=== PATIENT | male | born 1965 | race Caucasian/White ===

== ENCOUNTER 2016-08-19 22:51 | Emergency (ER) | payer OTHER ==
[~2016-08-19] VITALS: Ht 185.4 cm; Wt 120.0 kg
[~2016-08-19 22:51] MED LIST: BACT800T5 PO; CEPH500C3 PO; CLON0.2T PO; GLUCTAB PO; GLYB1TAB51 PO; HYDR-3535 PO; LISI-360 PO; METO50TA OR; ST J81CH PO
[2016-08-19 23:10] VITALS: BP 154/97; PULSE 70; RESP 18; TEMP 98.5; O2SAT 96
[2016-08-19] MEDS ORDERED: ASPI81CH CHEW (23:28)
[2016-08-19] MEDS ORDERED: KETOROLAC TROMETHAMINE 30 MG/ML (IVP) VIAL IV PUSH ONE (23:30)
[2016-08-19] MEDS ORDERED: SODIUM CHLORIDE 0.9% FLUSH 10 ML FLUSH IVF PRN (23:30)
--- NOTE | 2016-08-19 23:44 | RADHPO ---
EXAM DATE/TIME: 08/19/2016 23:30 [facility] COMPARISON: CHEST PA & LAT, July 17, 2013, 10:19. INDICATIONS : Left chest and arm pain. MEDICAL HISTORY : None. SURGICAL HISTORY : None. ENCOUNTER: Initial ACUITY: 3 days PAIN SCORE: 8/10 LOCATION: Left chest FINDINGS: A single view of the chest demonstrates the lungs to be symmetrically aerated without evidence of mas s, infiltrate or effusion. The cardiomediastinal contours are unremarkable. Osseous structures are intact. CONCLUSION: No acute disease. Danyel Blue MD on August 19, 2016 at 23:42 Board Certified Radiologist. This report was verified electronically.
[2016-08-20 00:05] LABS: CHLORIDE 105 MEQ/L (98-107); POTASSIUM 3.8 MEQ/L (3.5-5.1); SODIUM (NA) 140 MEQ/L (136-145)
[2016-08-20 00:08] LABS: ANION GAP 7 MEQ/L (5-15); BICARBONATE 28.3 MEQ/L (21.0-32.0)
[2016-08-20 00:09] LABS: APTT (PATIENT) 28.5 SEC (24.3-30.1); BLOOD UREA NITROGEN 17 MG/DL (7-18); INTERNATIONAL NORMALIZED RATIO 1.1 RATIO; PROTHROMBIN TIME - PATIENT 11.9 SEC (9.8-11.6)
[2016-08-20 00:11] LABS: ALT (GPT) 32 U/L (12-78)
--- NOTE | 2016-08-20 00:11 | PD ---
HPI Chief Complaint: Musculoskeletal Complaint Time Seen by Provider: 23:27 Travel History International Travel<30 days: No Contact w/Intl Traveler<30days: No Traveled to known affect area: No History of Present Illness HPI Patient 50-year-old male presents emergency department with left lower extremity pain. Patient states the pain started a few days ago has been gradually worsening. He states that the pain is beginning to radiate into his upper back and now onto his left upper extremity. He is coming by his and they stated that they did some online research and found that the differential diagnosis included heart disease as well as DVT left lower extremity. They're concerned that he may have developed a severe condition. Patient denies any shortness of breath abdominal pain nausea vomiting diarrhea. He does have a history of cerebrovascular accident and does continue to smoke. States pain is highly positional. PFSH Past Medical History Arthritis: Yes Asthma: Yes Autoimmune Disease: No Anxiety: Yes Depression: Yes Cancer: No Cardiovascular Problems: Yes COPD: Yes Cerebrovascular Accident: Yes (TIMES 2, RESIDUAL RIGHT HAND WEAKNESS) Diabetes: Yes Patient Takes Glucophage: No Diminished Hearing: No Gastrointestinal Disorders: No GERD: Yes Immune Disorder: No Implanted Vascular Access Dvce: No Kidney Stones: Yes Neurologic: Yes Psychiatric: No Reproductive: No Respiratory: No Sleep Apnea: Yes Thyroid Disease: No ?: Not Past Surgical History Other Surgery: Yes (SINUS SURGERY) Social History Alcohol Use: Yes (occ) Tobacco Use: Yes (1ppd) Substance Use: No Allergies-Medications (Allergen,Severity, Reaction): Coded Allergies: Cipro (Verified Allergy, Unknown, 11/10/15) Erythromycin (Verified Allergy, Unknown, 11/10/15) Penicillin (Verified Allergy, Unknown, 11/10/15) Reported Meds & Prescriptions Reported Meds & Active Scripts Active [place] (Hydrocodone-Acetaminophen) 10-325 Mg Tab 1 Tab PO Q6H PRN Reported Aspirin 81 Mg Chew 81 Mg CHEW DAILY Review of Systems Except as stated in HPI: all other systems reviewed are Neg Physical Exam Narrative GENERAL: Well-developed well-nourished no apparent distress SKIN: Focused skin assessment warm/dry. HEAD: Atraumatic. Normocephalic. EYES: Pupils equal and round. No scleral icterus. No injection or drainage. ENT: No nasal bleeding or discharge. Mucous membranes pink and moist. NECK: Trachea midline. No JVD. CARDIOVASCULAR: Regular rate and rhythm. No murmur appreciated. 2+ bilateral equal pulses in all 4 extremities RESPIRATORY: No accessory muscle use. Clear to auscultation. Breath sounds equal bilaterally. GASTROINTESTINAL: Abdomen soft, non-tender, nondistended. Hepatic and splenic margins not palpable. MUSCULOSKELETAL: No obvious deformities. No clubbing. No cyanosis. No edema. No cordlike structure of any extremity, Homans sign negative. NEUROLOGICAL: Awake and alert. No obvious cranial nerve deficits. Motor grossly within normal limits. Normal speech. PSYCHIATRIC: Appropriate mood and affect; insight and judgment normal. Data Data Last Documented VS Vital Signs Date Time Temp Pulse Resp B/P Pulse Ox O2 Delivery O2 Flow Rate FiO2 08/20/16 01:20 78 16 146/87 100 08/19/16 23:10 98.5 Orders Electrocardiogram (08/19/16 23:27) Complete Blood Count With Diff (08/19/16 23:27) Comprehensive Metabolic Panel (08/19/16 23:27) Magnesium (Mg) (08/19/16 23:27) Prothrombin Time / Inr (Pt) (08/19/16 23:27) Act Partial Throm Time (Ptt) (08/19/16 23:27) Troponin I (08/19/16 23:27) Chest, Single Ap (08/19/16 23:27) Ecg Monitoring (08/19/16 23:27) Iv Access Insert/Monitor (08/19/16 23:27) Oximetry (08/19/16 23:27) Oxygen Administration (08/19/16 23:27) Sodium Chloride 0.9% Flush (Ns Flush) (08/19/16 23:30) Us Leg Venous Doppler (08/19/16 23:27) Ketorolac Inj (Toradol Inj) (08/19/16 23:30) Morphine Inj (Morphine Inj) (08/20/16 01:15) Labs Laboratory Tests Test 08/19/16 23:50 White Blood Count 6.4 TH/MM3 Red Blood Count 5.43 MIL/MM3 Hemoglobin 14.7 GM/DL Hematocrit 44.9 % Mean Corpuscular Volume 82.7 FL Mean Corpuscular Hemoglobin 27.1 PG Mean Corpuscular Hemoglobin 32.8 % Concent Red Cell Distribution Width 13.5 % Platelet Count 179 TH/MM3 Mean Platelet Volume 8.6 FL Neutrophils (%) (Auto) 51.1 % Lymphocytes (%) (Auto) 33.4 % Monocytes (%) (Auto) 7.8 % Eosinophils (%) (Auto) 6.2 % Basophils (%) (Auto) 1.5 % Neutrophils # (Auto) 3.3 TH/MM3 Lymphocytes # (Auto) 2.1 TH/MM3 Monocytes # (Auto) 0.5 TH/MM3 Eosinophils # (Auto) 0.4 TH/MM3 Basophils # (Auto) 0.1 TH/MM3 CBC Comment DIFF FINAL Differential Comment Prothrombin Time 11.9 SEC Prothromb Time International 1.1 RATIO Ratio Activated Partial 28.5 SEC Thromboplast Time Sodium Level 140 MEQ/L Potassium Level 3.8 MEQ/L Chloride Level 105 MEQ/L Carbon Dioxide Level 28.3 MEQ/L Anion Gap 7 MEQ/L Blood Urea Nitrogen 17 MG/DL Creatinine 1.20 MG/DL Estimat Glomerular Filtration 64 ML/MIN Rate Random Glucose 169 MG/DL Calcium Level 8.1 MG/DL Magnesium Level 2.0 MG/DL Total Bilirubin 0.4 MG/DL Aspartate Amino Transf 18 U/L (AST/SGOT) Alanine Aminotransferase 32 U/L (ALT/SGPT) Alkaline Phosphatase 59 U/L Troponin I LESS THAN 0.02 NG/ML Total Protein 6.6 GM/DL Albumin 3.5 GM/DL [facility] Medical Decision Making Medical Screen Exam Complete: Yes Emergency Medical Condition: Yes Interpretation(s) EKG shows normal sinus rhythm normal axis normal R-wave progression. No concerning ST segment changes, there is some T-wave flattening in lead 3 and aVF. This is a nonspecific finding. This appears to be a normal EKG. Differential Diagnosis ACS seems unlikely, pulmonary embolism seems unlikely, DVT seemed unlikely, musculoskeletal source of his pain seems more likely. Narrative Course 50-year-old male roomed in emergency department, was given pain medicine. His initial workup including DVT ultrasound chest x-ray basic labs troponin and EKG were all reassuring. His physical exam is highly suggestive of a musculoskeletal cause. 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 Possible that he was placing some pressure on the left-sided extremities well reaching overhead. Discussed with him that I think is stable for discharge and follow- up with his primary care physician. Discussed at length need for smoking cessation as it can cause heart disease and other medical problems and he verbalized understanding. He is stable for discharge at this time. Discussed return to ED criteria Diagnosis Primary Impression: Extremity pain Qualified Code: M79.605 - Pain of left lower extremity Additional Instructions: Follow with her primary care physician or the [facility] as soon as possible. Med/Other Pt SpecificInfo: Prescription(s) given Scripts Hydrocodone-Acetaminophen ([place])10-325 Mg Tab1 Tab PO Q6H PRN (PAIN) #15 TAB Ref 0 Prov:Bradly Cam MD 08/20/16 Disposition: 01 DISCHARGE HOME Condition: Stable Bradly Cam MD Aug 20, 2016 00:11
[2016-08-20 00:12] LABS: AST (GOT) 18 U/L (15-37); GLOMERULAR FILTRATION RATE 64 ML/MIN (>89)
[2016-08-20 00:13] LABS: TOTAL BILIRUBIN ADULT 0.4 MG/DL (0.2-1.0)
[2016-08-20 00:14] LABS: ALKALINE PHOSPHATASE 59 U/L (45-117)
[2016-08-20 00:16] LABS: AUTOMATED NEUTROPHIL # 3.3 TH/MM3 (1.8-7.7); BASOPHIL # 0.1 TH/MM3 (0-0.2); BASOPHIL % 1.5 % (0.0-2.0); EOSINOPHIL # 0.4 TH/MM3 (0-0.4); EOSINOPHIL % 6.2 % (0.0-4.0); HEMATOCRIT 44.9 % (39.0-51.0); HEMO FLAGS DIFF FINAL; LYMPH % 33.4 % (9.0-44.0); LYMPHOCYTE # 2.1 TH/MM3 (1.0-4.8); MEAN CELL VOLUME 82.7 FL (80.0-100.0); MEAN CORPUSCULAR HEMOGLOBIN 27.1 PG (27.0-34.0); MEAN CORPUSCULAR HGB CONC 32.8 % (32.0-36.0); MONO % 7.8 % (0.0-8.0); NEUT % 51.1 % (16.0-70.0); PLATELET COUNT 179 TH/MM3 (150-450); RED BLOOD COUNT 5.43 MIL/MM3 (4.50-5.90); RED CELL DISTRIBUTION WIDTH 13.5 % (11.6-17.2); WHITE BLOOD COUNT 6.4 TH/MM3 (4.0-11.0)
--- NOTE | 2016-08-20 00:44 | RADHPO ---
EXAM DATE/TIME: 08/20/2016 00:02 [facility] COMPARISON: No previous studies available for comparison. INDICATIONS : Left leg swelling. MEDICAL HISTORY : Arthritis. Osteoarthritis. Renal calculi. CVA x2. Right hand weakness. Head trauma. HTN. COPD. Ast hma. Sleep apnea. Dyspnea. GERD. Diabetes. DVT. Depression. Anxiety. SURGICAL HISTORY : Sinus surgery. ENCOUNTER: Initial ACUITY: 2 day PAIN SCORE: 8/10 LOCATION: Left leg. TECHNIQUE: Venous ultrasound of the leg was performed from the inguinal ligament to the proximal calf. Real-sabina e, color Doppler and spectral tracing, compression and augmentation techniques were used. FINDINGS: There is normal compressibility of the deep venous system from the inguinal region to the proximal ca lf. No echogenic clot is seen in the lumen of the common femoral, femoral, popliteal, and posterior tibial veins. There is a normal response of the venous system to proximal and distal augmentation an d respiration. CONCLUSION: Negative exam with no evidence of deep venous thrombosis. Danyel Blue MD on August 20, 2016 at 0:42 Board Certified Radiologist. This report was verified electronically.
[2016-08-20] MEDS ORDERED: HYDR-3366 PO (01:02)
[2016-08-20] MEDS ORDERED: MORPHINE SULFATE 8 MG/ML INJ IV PUSH ONE (01:15)
[2016-08-20 01:20] VITALS: BP 146/87
--- NOTE | 2016-08-21 09:57 | EKG ---
Date Performed: 08/19/2016 Time Performed: 23:32:34 PTAGE: 50 years EKG: Sinus rhythm . Inferior T wave changes are nonspecific Borderline ECG PREVIOUS TRACING : 03/09/2012 02.02 DOCTOR: Porfirio Isbell Interpretating Date/Time 08/21/2016 09:46:33
== END 2016-08-20 01:25 | disposition home or self-care (01) ==
LOC: PHED 22:51
DX: M79.605 Pain in left leg (principal); J45.909 Unspecified asthma, uncomplicated; J44.9 Chronic obstructive pulmonary disease, unspecified; Z86.73 Personal history of transient ischemic attack (TIA), and cerebral infarction without residual deficits; E11.9 Type 2 diabetes mellitus without complications; K21.9 Gastro-esophageal reflux disease without esophagitis; F17.200 Nicotine dependence, unspecified, uncomplicated; Z79.899 Other long term (current) drug therapy
CPT/HCPCS: 71010; 80053; 83735; 84484; 85025; 85610; 85730; 93005; 93971; 96374; 96375; 99285; J1885; J2270

== ENCOUNTER 2016-11-29 17:02 | Emergency (ER) | payer OTHER ==
[~2016-11-29] VITALS: Ht 188 cm; Wt 118.5 kg
[~2016-11-29 17:02] MED LIST changes: +ASPI81CH CHEW; -BACT800T5 PO; -CEPH500C3 PO; -CLON0.2T PO; -GLUCTAB PO; -GLYB1TAB51 PO; +HYDR-3366 PO; -HYDR-3535 PO; -LISI-360 PO; -METO50TA OR; -ST J81CH PO
[2016-11-29 17:11] VITALS: BP 158/97; PULSE 82; RESP 20; TEMP 98.2; O2SAT 97
[2016-11-29] MEDS ORDERED: TETANUS/DIPHTHERIA TOXOID ADULT 0.5 ML VIAL IM ONE (17:30)
--- NOTE | 2016-11-29 17:30 | PD ---
HPI Chief Complaint: Laceration/Skin Injury Time Seen by Provider: 17:24 Travel History International Travel<30 days: No Contact w/Intl Traveler<30days: No Traveled to known affect area: No History of Present Illness HPI 51-year-old male presents to the emergency room for evaluation of a laceration to his right fifth finger that occurred just prior to arrival. Patient reached into a bucket that had a metal piece sticking out which filleted his finger. He applied pressure and got the bleeding to stop. He did not clean it with anything. He was unsure if he needed to have it stitched because of the skin flap. Unknown last tetanus. No chronic medical conditions or daily medications. PFSH Past Medical History Arthritis: Yes Asthma: Yes Autoimmune Disease: No Anxiety: Yes Depression: Yes Cancer: No Cardiovascular Problems: Yes COPD: Yes Cerebrovascular Accident: Yes (TIMES 2, RESIDUAL RIGHT HAND WEAKNESS) Diabetes: Yes Diminished Hearing: No Gastrointestinal Disorders: No GERD: Yes Immune Disorder: No Implanted Vascular Access Dvce: No Kidney Stones: Yes Neurologic: Yes Psychiatric: No Reproductive: No Respiratory: No Sleep Apnea: Yes Thyroid Disease: No Past Surgical History Other Surgery: Yes (SINUS SURGERY) Social History Alcohol Use: Yes (occ) Tobacco Use: Yes (1ppd) Substance Use: No Allergies-Medications (Allergen,Severity, Reaction): Coded Allergies: ciprofloxacin (Unverified Allergy, Unknown, 10/25/16) erythromycin base (Unverified Allergy, Unknown, 10/25/16) penicillin G (Unverified Allergy, Unknown, 10/25/16) Reported Meds & Prescriptions Reported Meds & Active Scripts Active [place] (Hydrocodone-Acetaminophen) 10-325 Mg Tab 1 Tab PO Q6H PRN Reported Aspirin 81 Mg Chew 81 Mg CHEW DAILY Review of Systems Except as stated in HPI: all other systems reviewed are Neg Physical Exam Narrative GENERAL: Well-nourished, well-developed male in no acute distress. Afebrile. Ambulatory. SKIN: Focused skin assessment warm/dry. There is a 1 cm well approximated skin flap on the right fifth finger on the proximal phalanx. It is not bleeding. HEAD: Normocephalic. EYES: No scleral icterus. No injection or drainage. NECK: Supple, trachea midline. No JVD or lymphadenopathy. CARDIOVASCULAR: Regular rate and rhythm without murmurs, gallops, or rubs. RESPIRATORY: Breath sounds equal bilaterally. No accessory muscle use. MUSCULOSKELETAL: No cyanosis, or edema. Full range motion of the right hand. Data Data Last Documented VS Vital Signs Date Time Temp Pulse Resp B/P (MAP) Pulse Ox O2 Delivery O2 Flow Rate FiO2 11/29/16 17:11 98.2 82 20 158/97 (117) 97 Orders Orders Tetanus/Diphtheria Tox Adult (Tetanus/Di (11/29/16 17:30) MDM Medical Decision Making Medical Screen Exam Complete: Yes Emergency Medical Condition: Yes Medical Record Reviewed: Yes Differential Diagnosis Laceration, tetanus prophylaxis, contusion, avulsion Narrative Course 51-year-old male presents to the emergency room for evaluation of a laceration to his right fifth finger that occurred earlier today. Patient stuck his finger into a bucket that had a sharp metal piece which cut his finger. He did not clean it but did apply pressure and was able to get the bleeding to stop quickly. Full range of motion of the right fifth finger. Less than 2 second capillary refill distally. There is a 1 cm well-approximated, extremely superficial skin flap on the right fifth finger on the proximal phalanx. It is not bleeding. Laceration is amenable to glue. It was Steri-Stripped and glued and patient was discharged with wound care instructions. Told to follow up with a primary care physician or return for worsening symptoms. And agrees to plan. Diagnosis Primary Impression: Finger laceration Qualified Codes: S61.216A - Laceration without foreign body of right little finger without damage to nail, initial encounter Referrals: Primary Care Physician Additional Instructions: Keep wound clean and dry. When glue falls off, apply triple antibiotic ointment daily until scab is gone. Follow-up with primary care physician. Return for worsening symptoms. Disposition: 01 DISCHARGE HOME Condition: Stable Clarice Medina Nov 29, 2016 17:30
== END 2016-11-29 17:42 | disposition home or self-care (01) ==
LOC: PHEFT 17:02
DX: S61.216A Laceration without foreign body of right little finger without damage to nail, initial encounter (principal); F17.210 Nicotine dependence, cigarettes, uncomplicated; W26.8XXA Contact with other sharp object(s), not elsewhere classified, initial encounter; Z23 Encounter for immunization
CPT/HCPCS: 12001; 90471; 90714

== ENCOUNTER 2017-07-03 09:23 | Emergency (ER) | payer OTHER ==
[~2017-07-03] VITALS: Ht 188 cm; Wt 120.0 kg
[2017-07-03 09:33] VITALS: BP 177/117; PULSE 71; RESP 16; TEMP 97.9; O2SAT 98
--- NOTE | 2017-07-03 09:42 | PD ---
HPI Chief Complaint: Chest Pain Time Seen by Provider: 09:28 Travel History International Travel<30 days: No Contact w/Intl Traveler<30days: No Traveled to known affect area: No History of Present Illness HPI This 51-year-old male says he been having left-sided chest pain off and on since Monday. Pain comes on a can be quite severe for about few minutes. It is sharp. He can be quite severe it radiates on the left arm. It is sometimes associated with shortness of breath. Does not appear to be related to exertion. He had the discomfort over the weekend and tried to go to work this morning but was having discomfort at work so is going for evaluation. He has no history of coronary artery disease. His father had bypass surgery at the age of 54. He has been diabetic in the past but had a 65 pound weight loss and was taken off his diabetes medicine. He does smoke cigarettes. He has a history of a stroke in the past at the age of 25 PFSH Past Medical History Hx Anticoagulant Therapy: No Arthritis: Yes Asthma: Yes Autoimmune Disease: No Anxiety: Yes Depression: Yes Cancer: No Cardiovascular Problems: Yes (HTN) Chest Pain: Yes COPD: Yes Cerebrovascular Accident: Yes (CVA) Diabetes: Yes Patient Takes Glucophage: No Diminished Hearing: No Gastrointestinal Disorders: No GERD: Yes Headaches: Yes Immune Disorder: No Implanted Vascular Access Dvce: No Kidney Stones: Yes Neurologic: Yes Psychiatric: No Reproductive: No Respiratory: No Sleep Apnea: Yes Thyroid Disease: No Tetanus Vaccination: < 5 Years Past Surgical History Other Surgery: Yes (SINUS SURGERY) Social History Alcohol Use: Yes (Social) Tobacco Use: Yes (1.5 PPD) Substance Use: No Allergies-Medications (Allergen,Severity, Reaction): Coded Allergies: ciprofloxacin (Unverified Allergy, Unknown, 07/03/17) erythromycin base (Unverified Allergy, Unknown, 07/03/17) penicillin G (Unverified Allergy, Unknown, 07/03/17) Reported Meds & Prescriptions Reported Meds & Active Scripts Active No Active Prescriptions or Reported Medications Review of Systems Except as stated in HPI: all other systems reviewed are Neg Cardiovascular: Positive: Chest Pain or Discomfort Respiratory: Positive: Shortness of Breath Genitourinary: No: Frequency Hematologic/Lymphatic: No: Easy Bruising Physical Exam Narrative GENERAL: Well-developed male SKIN: Focused skin assessment warm/dry. HEAD: Atraumatic. Normocephalic. EYES: Pupils equal and round. No scleral icterus. No injection or drainage. ENT: No nasal bleeding or discharge. Mucous membranes pink and moist. NECK: Trachea midline. No JVD. CARDIOVASCULAR: Regular rate and rhythm. No murmur appreciated. RESPIRATORY: No accessory muscle use. Clear to auscultation. Breath sounds equal bilaterally. GASTROINTESTINAL: Abdomen soft, non-tender, nondistended. Hepatic and splenic margins not palpable. MUSCULOSKELETAL: No obvious deformities. No clubbing. No cyanosis. No edema. NEUROLOGICAL: Awake and alert. No obvious cranial nerve deficits. Motor grossly within normal limits. Normal speech. PSYCHIATRIC: Appropriate mood and affect; insight and judgment normal. Data Data Last Documented VS Vital Signs Date Time Temp Pulse Resp B/P (MAP) Pulse Ox O2 Delivery O2 Flow Rate FiO2 07/03/17 10:15 67 16 157/76 (103) 96 Nasal Cannula 2.00 158/96 (116) 07/03/17 09:33 97.9 Orders Orders Electrocardiogram (07/03/17 09:40) Basic Metabolic Panel (Bmp) (07/03/17 09:40) Complete Blood Count With Diff (07/03/17:40) Magnesium (Mg) (07/03/17:40) Prothrombin Time / Inr (Pt) (07/03/17:40) Act Partial Throm Time (Ptt) (07/03/17 09:40) Troponin I (07/03/17 09:40) Chest, Single Ap (07/03/17:40) Ecg Monitoring (07/03/17:40) Bilateral Bp Monitoring (07/03/17:40) Iv Access Insert/Monitor (07/03/17:40) Oximetry (07/03/17 09:40) Oxygen Administration (07/03/17:40) Sodium Chloride 0.9% Flush (Ns Flush) (07/03/17:45) Labs Laboratory Tests Test 07/03/17:45 White Blood Count 6.1 TH/MM3 Red Blood Count 5.81 MIL/MM3 Hemoglobin 15.8 GM/DL Hematocrit 49.0 % Mean Corpuscular Volume 84.3 FL Mean Corpuscular Hemoglobin 27.1 PG Mean Corpuscular Hemoglobin Concent 32.2 % Red Cell Distribution Width 12.8 % Platelet Count 162 TH/MM3 Mean Platelet Volume 8.6 FL Neutrophils (%) (Auto) 60.7 % Lymphocytes (%) (Auto) 26.2 % Monocytes (%) (Auto) 7.2 % Eosinophils (%) (Auto) 4.7 % Basophils (%) (Auto) 1.2 % Neutrophils # (Auto) 3.7 TH/MM3 Lymphocytes # (Auto) 1.6 TH/MM3 Monocytes # (Auto) 0.4 TH/MM3 Eosinophils # (Auto) 0.3 TH/MM3 Basophils # (Auto) 0.1 TH/MM3 CBC Comment DIFF FINAL Differential Comment Prothrombin Time 10.9 SEC Prothromb Time International Ratio 1.1 RATIO Activated Partial Thromboplast Time 27.0 SEC Blood Urea Nitrogen 12 MG/DL Creatinine 0.96 MG/DL Random Glucose 138 MG/DL Calcium Level 8.6 MG/DL Magnesium Level 2.1 MG/DL Sodium Level 139 MEQ/L Potassium Level 4.1 MEQ/L Chloride Level 107 MEQ/L Carbon Dioxide Level 27.1 MEQ/L Anion Gap 5 MEQ/L Estimat Glomerular Filtration Rate 82 ML/MIN Troponin I LESS THAN 0.02 NG/ML MDM Medical Decision Making Medical Screen Exam Complete: Yes Emergency Medical Condition: Yes Medical Record Reviewed: Yes Differential Diagnosis Differential includes coronary artery disease, anxiety, atypical chest pain Narrative Course Workup is negative. EKG and troponin are negative. Patient has taken an aspirin earlier today. I feel he is at significant risk in view of his smoking history. I recommended that he be admitted to the chest pain center but he declines at this time. He has been encouraged to return at any time if his symptoms should worsen. Risk of myocardial infarction and sudden have been explained to the patient Diagnosis Primary Impression: Chest pain Additional Instructions: Return at anytime if symptoms recur, take aspirin daily Scripts No Active Prescriptions or Reported Meds Disposition: DISCHARGE HOME Condition: Stable Stefan Mcgrath MD Jul 03, 2017 09:42
[2017-07-03 09:43] VITALS: RESP 16; O2SAT 98
[2017-07-03] MEDS ORDERED: SODIUM CHLORIDE 0.9% FLUSH 10 ML FLUSH IVF PRN (09:45)
[2017-07-03 09:52] LABS: AUTOMATED NEUTROPHIL # 3.7 TH/MM3 (1.8-7.7); BASOPHIL # 0.1 TH/MM3 (0-0.2); BASOPHIL % 1.2 % (0.0-2.0); EOSINOPHIL # 0.3 TH/MM3 (0-0.4); EOSINOPHIL % 4.7 % (0.0-4.0); HEMOGLOBIN 15.8 GM/DL (13.0-17.0); LYMPH % 26.2 % (9.0-44.0); LYMPHOCYTE # 1.6 TH/MM3 (1.0-4.8); MEAN CELL VOLUME 84.3 FL (80.0-100.0); MEAN CORPUSCULAR HEMOGLOBIN 27.1 PG (27.0-34.0); MEAN CORPUSCULAR HGB CONC 32.2 % (32.0-36.0); MEAN PLATELET VOLUME 8.6 FL (7.0-11.0); MONO % 7.2 % (0.0-8.0); MONOCYTE # 0.4 TH/MM3 (0-0.9); NEUT % 60.7 % (16.0-70.0); PLATELET COUNT 162 TH/MM3 (150-450); RED BLOOD COUNT 5.81 MIL/MM3 (4.50-5.90); RED CELL DISTRIBUTION WIDTH 12.8 % (11.6-17.2); WHITE BLOOD COUNT 6.1 TH/MM3 (4.0-11.0)
[2017-07-03 10:05] LABS: CHLORIDE 107 MEQ/L (98-107); SODIUM (NA) 139 MEQ/L (136-145)
[2017-07-03 10:07] LABS: CALCIUM 8.6 MG/DL (8.5-10.1)
[2017-07-03 10:08] LABS: BICARBONATE 27.1 MEQ/L (21.0-32.0); BLOOD UREA NITROGEN 12 MG/DL (7-18); GLUCOSE,RANDOM 138 MG/DL (74-106); MAGNESIUM 2.1 MG/DL (1.5-2.5)
[2017-07-03 10:09] LABS: INTERNATIONAL NORMALIZED RATIO 1.1 RATIO; PROTHROMBIN TIME - PATIENT 10.9 SEC (9.8-11.6)
[2017-07-03 10:11] LABS: CREATININE 0.96 MG/DL (0.60-1.30); GLOMERULAR FILTRATION RATE 82 ML/MIN (>89)
[2017-07-03 10:15] VITALS: BP_SYST 157; BP_SYST 158; BP_DIAS 76; BP_DIAS 96; PULSE 67; RESP 16; O2SAT 96
[2017-07-03 10:16] LABS: TROPONIN I LESS THAN 0.02 NG/ML (0.02-0.05)
--- NOTE | 2017-07-03 10:17 | RADRPT ---
EXAM DATE/TIME: 07/03/2017 09:41 [facility] COMPARISON: CHEST SINGLE AP, August 19, 2016, 23:30. INDICATIONS : Chest pain MEDICAL HISTORY : Arthritis. Osteoarthritis. Renal calculi. CVA x2. Right hand weakness. Head SURGICAL HISTORY : None. ENCOUNTER: Initial ACUITY: 1 day PAIN SCORE: 5/10 LOCATION: Bilateral chest FINDINGS: A single view of the chest demonstrates the lungs to be symmetrically aerated without evidence of mas s, infiltrate or effusion. The cardiomediastinal contours are unremarkable. Osseous structures are intact. CONCLUSION: No acute disease. Danyel Blue MD on July 03, 2017 at 10:15 Board Certified Radiologist. This report was verified electronically.
--- NOTE | 2017-07-03 20:56 | EKG ---
Date Performed: 07/03/2017 Time Performed: 09:36:00 PTAGE: 51 years EKG: Sinus rhythm NORMAL ECG NO PREVIOUS TRACING DOCTOR: Diogenes Watson Interpretating Date/Time 07/03/2017 20:56:19
== END 2017-07-03 11:41 | disposition home or self-care (01) ==
LOC: PHED 09:23
DX: R07.9 Chest pain, unspecified (principal); R06.02 Shortness of breath; E11.9 Type 2 diabetes mellitus without complications; M19.90 Unspecified osteoarthritis, unspecified site; F41.9 Anxiety disorder, unspecified; I10 Essential (primary) hypertension; J44.9 Chronic obstructive pulmonary disease, unspecified; F17.210 Nicotine dependence, cigarettes, uncomplicated; Z86.73 Personal history of transient ischemic attack (TIA), and cerebral infarction without residual deficits
CPT/HCPCS: 71045; 80048; 83735; 84484; 85025; 85610; 85730; 93005; 99285